=== PATIENT | male | born 2000 | race Caucasian/White ===

== ENCOUNTER 2020-08-09 21:07 | Emergency (ER) | payer OTHER ==
[~2020-08-09] VITALS: Ht 188 cm; Wt 81.6 kg
--- NOTE | 2020-08-09 21:10 | NUR ---
PT AAOX4. BIBEMS FROM [facility] C/O WITNESSED SEIZURE. BS-57, GIVEN D10 IV BY EMS DRAPERY SEAMSTRESS. PT PALCED IN BED 13 ON CIGAR TOBACCO REHANDLER AND PULSE OX. SEIZURE PRECAUTION INITIATED, VSS. NO ACUTE DISTRESS NOTED. AWAITING ER MD FOR EVAL AND ORDERS.
--- NOTE | 2020-08-09 21:19 | NUR ---
PT ON THE PHONE, VSS.
[2020-08-09] MEDS ORDERED: LORAZEPAM INJ 2 MG/ML VIAL IV ONE (21:30)
[2020-08-09] MEDS ORDERED: IV NS 0.9% 1,000 ML BAG IV ONE (21:30)
[2020-08-09] MEDS ORDERED: LORAZEPAM INJ 2 MG/ML VIAL ONE (21:38)
[2020-08-09 21:46] LABS: BASOPHILS % (AUTO) 0.6 % (0.0-2.0); HEMATOCRIT 46 % (39-51); HEMOGLOBIN 15.6 g/dL (13.5-17.5); LYMPHOCYTES # (AUTO) 2.4 /CMM (0.8-4.8); LYMPHOCYTES % (AUTO) 30.7 % (20.0-44.0); MEAN CORPUSCULAR HGB CONC 34 g/dl (31.0-36.0); MEAN CORPUSCULAR VOLUME 93 fL (80-96); MONOCYTES # (AUTO) 0.4 /CMM (0.1-1.30); MONOCYTES % (AUTO) 5.7 % (2.0-12.0); NEUTROPHILS # (AUTO) 4.9 /CMM (1.8-8.9); PLATELET COUNT (AUTO) 262 /CMM (150-450); WHITE BLOOD COUNT (AUTO) 7.8 K/uL (4.3-11.0)
[2020-08-09 21:55] LABS: CALCIUM, SERUM 9.8 mg/dL (8.5-10.1); CARBON DIOXIDE 27 mmol/L (21-32); CHLORIDE 105 mmol/L (98-107); CREATININE 0.9 mg/dL (0.6-1.3); GLUCOSE 65 mg/dL (74-106); POTASSIUM 3.7 mmol/L (3.5-5.1); SODIUM SERUM 142 mmol/L (136-145); UREA NITROGEN, BLOOD 17 mg/dL (7-18)
[2020-08-09 22:02] LABS: ALANINE AMINOTRANSFERASE 50 U/L (12-78); ALCOHOL, BLOOD < 3 mg/dL (0-0); ALKALINE PHOSPHATASE 92 U/L (46-116); ASPARTATE AMINOTRANSFERASE 21 U/L (15-37); BILIRUBIN,DIRECT 0.1 mg/dL (0.0-0.2); BILIRUBIN,TOTAL 0.3 mg/dL (0.2-1.0); TOTAL PROTEIN, SERUM 7.1 g/dL (6.4-8.2)
--- NOTE | 2020-08-09 22:45 | NUR ---
PT REMAINS RESTING COMFORTABLY. VSS.
[2020-08-09] MEDS ORDERED: CHLO25CA22 PO (22:48)
[2020-08-09 23:40] VITALS: BP 128/62
--- NOTE | 2020-08-09 23:40 | NUR ---
IV removed. Catheter intact and site benign. Pressure and 4x4 applied to site. No bleeding noted.
--- NOTE | 2020-08-09 23:40 | NUR ---
Patient discharged to home in stable condition. Written and verbal after care instructions given. Patient verbalizes understanding of instruction and RX. Pt ambulated out of ED. VSS.
== END 2020-08-09 23:41 | disposition home or self-care (01) ==
LOC: ER 21:11
DX: F13.239 Sedative, hypnotic or anxiolytic dependence with withdrawal, unspecified (principal); Z79.899 Other long term (current) drug therapy
CPT/HCPCS: 36415; 80048; 80076; 80320; 82962 ×2; 85025; 93005; 96361; 96374; 99284; J2060; J7030; G0480